=== PATIENT | male | born 1980 | race Caucasian/White ===

== ENCOUNTER 2019-02-22 23:34 | Emergency (ER) | payer SELFPAY ==
[~2019-02-22] VITALS: Ht 167.6 cm; Wt 88.5 kg
--- NOTE | 2019-02-22 23:55 | NUR ---
PT PRESENTED TO THE ER WITH A C/O EPIGASTRIC PAIN THAT RADIATES TO THE CHEST. PT STATED THAT THE DISCOMFORT IS INTERMITTENT AND RADIATES TO THE BACK AT TIMES. PT WAS PLACED ON THE MONITOR AND CONTINUOUS PULSE OX. DR RALPH IS AT THE BEDSIDE EVALUATING THE PT.
[2019-02-23] MEDS ORDERED: KETOROLAC TROMETHAMINE INJ 30 MG/ML VIAL IV ONE
[2019-02-23 00:17] LABS: BASOPHILS # (AUTO) 0.2 /CMM (0.0-0.2); EOSINOPHILS % (AUTO) 2.9 % (0.0-6.0); HEMATOCRIT 45 % (39-51); HEMOGLOBIN 14.9 g/dL (13.5-17.5); LYMPHOCYTES # (AUTO) 2.6 /CMM (0.8-4.8); LYMPHOCYTES % (AUTO) 42.4 % (20.0-44.0); MEAN CORPUSCULAR HGB CONC 33 g/dl (31.0-36.0); MEAN CORPUSCULAR VOLUME 85 fL (80-96); MONOCYTES # (AUTO) 0.5 /CMM (0.1-1.30); NEUTROPHILS # (AUTO) 2.7 /CMM (1.8-8.9); NEUTROPHILS % (AUTO) 43.7 % (43.0-81.0); PLATELET COUNT (AUTO) 290 /CMM (150-450); RED BLOOD CELL COUNT(AUTO) 5.25 MIL/uL (4.5-6.0); WHITE BLOOD COUNT (AUTO) 6.2 K/uL (4.3-11.0)
--- NOTE | 2019-02-23 00:18 | NUR ---
PT REFUSED MEDICATION. PT STATED THAT HIS PAIN WAS 2/10 AND NOT SO MUCH PAIN IT WAS DISCOMFORT. MD NOTIFIED AND ORDERS CANCELLED.
--- NOTE | 2019-02-23 00:21 | NUR ---
CXR IN PROGRESS AT THE BEDSIDE.
[2019-02-23 00:23] LABS: CALCIUM, SERUM 8.9 mg/dL (8.5-10.1); CARBON DIOXIDE 29 mmol/L (21-32); CHLORIDE 106 mmol/L (98-107); CREATININE 1.1 mg/dL (0.6-1.3); GLUCOSE 100 mg/dL (74-106); POTASSIUM 3.5 mmol/L (3.5-5.1); SODIUM SERUM 142 mmol/L (136-145); UREA NITROGEN, BLOOD 17 mg/dL (7-18)
--- NOTE | 2019-02-23 00:36 | NUR ---
PT APPEARS TO BE RESTING COMFORTABLY WITH NO S/S OF PAIN OR DISTRESS AT THIS TIME.
[2019-02-23 00:39] LABS: D-DIMER 0.19 mg/L(FEU (0.17-0.50)
--- NOTE | 2019-02-23 00:49 | NUR ---
CALLING TRACY RE: CXR READ
--- NOTE | 2019-02-23 00:50 | NUR ---
Patient discharged to home in stable condition. Written and verbal after care instructions given. Patient verbalizes understanding of instruction. PT AMBULATED OUT WITH A STEADY GAIT. VSS. NAD NOTED.
[2019-02-23 01:17] VITALS: BP 121/72
== END 2019-02-23 00:50 | disposition home or self-care (01) ==
LOC: ER 23:38
DX: M94.0 Chondrocostal junction syndrome [Tietze] (principal); F17.200 Nicotine dependence, unspecified, uncomplicated; Z88.8 Allergy status to other drugs, medicaments and biological substances; Z60.2 Problems related to living alone
CPT/HCPCS: 36415; 71045-TC; 80048-TC; 84484-TC; 85025-TC; 85378-TC; 85730-TC